=== PATIENT | male | born 1940 | race Caucasian/White ===

== ENCOUNTER 2016-10-06 09:38 | Outpatient (RCR) | payer MEDICAID, MEDICARE, OTHER ==
--- OUTSIDE RECORDS SUMMARY | 2016-07-10 10:10 | XMS REPORT | Continuity of Care Document ---
Author Author [facility] Organization [facility] Address Unknown Phone Unavailable Care Team Providers Care Aerophysics Engineer Name Role Phone Zoraida Lyle PCP [phone] Source Comments Some departments are not documenting in the electronic medical record. If you do not see the information that you expected, contact Release of Information in the Health Information Management department at [phone] for further assistance in locating additional records.[facility] Active Allergies and Adverse Reactions Not on File Current Medications Not on file Active Problems Not on file Social History Tobacco Use Types Packs/Day Years Used Date Never Assessed Plan of Care Health Maintenance Due Date Last Done Comments Physical (Comprehensive) 02/03/1947 Exam Pertussis Vaccine 02/03/1952 Tetanus Vaccine 1958 Colorectal Cancer 1991 Screening Shingles Vaccine 2001 Prevnar/Pneumovax (#1) 2006 Influenza Vaccine 05/21/2016 Results from Last 3 Months Not on file
[2016-07-10 10:51] LABS: BASOPHILS % (AUTO) 0 % (0-10); EOSINOPHILS # (AUTO) 0.1 10^3/uL (0.0-0.3); EOSINOPHILS % (AUTO) 1 % (0-10); LYMPHOCYTES # (AUTO) 0.8 X 10^3 (1.0-4.0); LYMPHOCYTES % (AUTO) 8 % (12-44); MEAN CORPUSCULAR HEMOGLOBIN 29 PG (25-34); MEAN CORPUSCULAR HGB CONC 33 G/DL (32-36); MEAN CORPUSCULAR VOLUME 86 FL (80-99); MONOCYTES # (AUTO) 0.8 X 10^3 (0.0-1.0); MONOCYTES % (AUTO) 8 % (0-12); NEUTROPHILS # (AUTO) 8.8 X 10^3 (1.8-7.8); NEUTROPHILS % (AUTO) 83 % (42-75); PLATELET COUNT 424 10^3/uL (130-400); RED BLOOD COUNT 3.51 10^6/uL (4.35-5.85); RED CELL DISTRIBUTION WIDTH 14.5 % (10.0-14.5); WHITE BLOOD COUNT 10.5 10^3/uL (4.3-11.0)
[2016-07-10 11:05] LABS: INR 1.8 (0.8-1.4); PROTHROMBIN TIME PATIENT 20.7 SEC (12.2-14.7)
[2016-07-10 11:15] LABS: ALANINE AMINOTRANSFERASE 65 U/L (0-55); ALBUMIN 3.1 G/DL (3.2-4.5); ANION GAP 9 MMOL/L (5-14); ASPARTATE AMINO TRANSFERASE 47 U/L (5-34); BILIRUBIN,TOTAL 0.7 MG/DL (0.1-1.0); BLOOD UREA NITROGEN 21 MG/DL (7-18); BUN/CREATININE RATIO 19; CARBON DIOXIDE 27 MMOL/L (21-32); CHLORIDE 99 MMOL/L (98-107); CREATININE SERUM 1.12 MG/DL (0.60-1.30); GFR ESTIMATED > 60; GLUCOSE 362 MG/DL (70-105); POTASSIUM 4.8 MMOL/L (3.6-5.0); SODIUM 135 MMOL/L (135-145); TOTAL PROTEIN 6.9 G/DL (6.4-8.2)
[2016-08-11 09:15] LABS: BASOPHILS % (AUTO) 0 % (0-10); EOSINOPHILS # (AUTO) 0.1 10^3/uL (0.0-0.3); EOSINOPHILS % (AUTO) 1 % (0-10); LYMPHOCYTES # (AUTO) 0.9 X 10^3 (1.0-4.0); LYMPHOCYTES % (AUTO) 7 % (12-44); MEAN CORPUSCULAR HEMOGLOBIN 29 PG (25-34); MEAN CORPUSCULAR HGB CONC 33 G/DL (32-36); MEAN CORPUSCULAR VOLUME 87 FL (80-99); MEAN PLATELET VOLUME 9.2 FL (7.4-10.4); MONOCYTES # (AUTO) 0.9 X 10^3 (0.0-1.0); MONOCYTES % (AUTO) 7 % (0-12); NEUTROPHILS # (AUTO) 11.2 X 10^3 (1.8-7.8); NEUTROPHILS % (AUTO) 86 % (42-75); PLATELET COUNT 397 10^3/uL (130-400); RED BLOOD COUNT 3.36 10^6/uL (4.35-5.85); RED CELL DISTRIBUTION WIDTH 14.3 % (10.0-14.5); WHITE BLOOD COUNT 13.1 10^3/uL (4.3-11.0)
[2016-08-11 10:18] LABS: ALANINE AMINOTRANSFERASE 105 U/L (0-55); ALBUMIN 3.3 G/DL (3.2-4.5); ANION GAP 7 MMOL/L (5-14); ASPARTATE AMINO TRANSFERASE 90 U/L (5-34); BILIRUBIN,TOTAL 0.6 MG/DL (0.1-1.0); BLOOD UREA NITROGEN 17 MG/DL (7-18); BUN/CREATININE RATIO 17; CALCIUM 9.6 MG/DL (8.5-10.1); CARBON DIOXIDE 28 MMOL/L (21-32); CHLORIDE 98 MMOL/L (98-107); CREATININE SERUM 0.99 MG/DL (0.60-1.30); GFR ESTIMATED > 60; GLUCOSE 255 MG/DL (70-105); MAGNESIUM 1.9 MG/DL (1.8-2.4); POTASSIUM 4.4 MMOL/L (3.6-5.0); SODIUM 133 MMOL/L (135-145); TOTAL PROTEIN 6.7 G/DL (6.4-8.2)
[2016-09-08 10:28] LABS: BASOPHILS % (AUTO) 0 % (0-10); EOSINOPHILS # (AUTO) 0.1 10^3/uL (0.0-0.3); EOSINOPHILS % (AUTO) 1 % (0-10); LYMPHOCYTES # (AUTO) 0.9 X 10^3 (1.0-4.0); LYMPHOCYTES % (AUTO) 7 % (12-44); MEAN CORPUSCULAR HEMOGLOBIN 28 PG (25-34); MEAN CORPUSCULAR HGB CONC 32 G/DL (32-36); MEAN CORPUSCULAR VOLUME 86 FL (80-99); MONOCYTES # (AUTO) 0.9 X 10^3 (0.0-1.0); MONOCYTES % (AUTO) 8 % (0-12); NEUTROPHILS % (AUTO) 84 % (42-75); PLATELET COUNT 426 10^3/uL (130-400); RED BLOOD COUNT 3.41 10^6/uL (4.35-5.85); RED CELL DISTRIBUTION WIDTH 14.1 % (10.0-14.5); WHITE BLOOD COUNT 11.9 10^3/uL (4.3-11.0)
[2016-09-08 11:37] LABS: ALANINE AMINOTRANSFERASE 143 U/L (0-55); ALBUMIN 3.3 G/DL (3.2-4.5); ANION GAP 9 MMOL/L (5-14); ASPARTATE AMINO TRANSFERASE 102 U/L (5-34); BILIRUBIN,TOTAL 0.8 MG/DL (0.1-1.0); BLOOD UREA NITROGEN 20 MG/DL (7-18); BUN/CREATININE RATIO 19; CALCIUM 9.7 MG/DL (8.5-10.1); CARBON DIOXIDE 27 MMOL/L (21-32); CHLORIDE 95 MMOL/L (98-107); CREATININE SERUM 1.06 MG/DL (0.60-1.30); GFR ESTIMATED > 60; GLUCOSE 322 MG/DL (70-105); MAGNESIUM 1.9 MG/DL (1.8-2.4); POTASSIUM 4.2 MMOL/L (3.6-5.0); SODIUM 131 MMOL/L (135-145); TOTAL PROTEIN 7.1 G/DL (6.4-8.2)
[~2016-10-06 09:38] MED LIST: AGM875T PO; ALBU0.632 IH; ALBU0.8322 IH; ALBU2.5V4 INH; ALBU8.5H2 INH; ALBUNEBRX IH; ALPR1T; ALPR1TAB2 PO; ALPR1TAB7 PO; AMOX500C2 PO; ASP81TEC; ASPI-266 PO; Aspirin PO; CEFD300C3 PO; CEFU500T34 PO; CEPH-38 PO; CEPH500C PO; CHOL400C8 PO; CLIN150C17 PO; CLOP75TA PO; CLOP75TA28 PO; CLPD75T PO; CPR500T PO; DIGO-10 PO; DIGO250T PO; DIGO250T15 PO; DOXY100T2 PO; ENAL5TAB PO; FINA5TAB6; FLUC200T45 PO; FLUT1DIS26 INH; FURO20TA4 PO; GABA-488 PO; GLIM4TAB PO; HYDR-2890 PO; HYDR1TAB85; HYDR1TAB86 PO; INSU100I14; INSU200I4; IPRA3AMP11 INH; LEVE500T PO; LEVO500T2 PO; LEVO500T69 PO; MED FOR DIABETES; METH4TAB PO; METO-272 PO; METO100T5; MTP25TSR; MTP50T PO; NITR0.4T SL; OXYC-143 PO; OXYC-272 PO; OXYC-464 PO; OXYC15TA73 PO; OXYC20TA63 PO; OXYC30TA76 PO; OXYC30TA77 PO; OXYC40TA49 PO; POTA10TA10 PO; PRD20T PO; PRED10TA PO; PROC5TAB PO; RT-ALBUINH IH; SULF-222 PO; SULF1TAB7 PO; TAMS0.4C2 PO; WARF-48 PO; WARF5TAB PO; WARF5TAB6 PO; WARF7.5T; WRF10T PO; WRF5T PO
[2016-10-06 10:17] LABS: BASOPHILS # (AUTO) 0.1 10^3/uL (0.0-0.1); BASOPHILS % (AUTO) 0 % (0-10); EOSINOPHILS % (AUTO) 0 % (0-10); LYMPHOCYTES # (AUTO) 0.7 X 10^3 (1.0-4.0); LYMPHOCYTES % (AUTO) 3 % (12-44); MEAN CORPUSCULAR HEMOGLOBIN 29 PG (25-34); MEAN CORPUSCULAR HGB CONC 34 G/DL (32-36); MEAN CORPUSCULAR VOLUME 86 FL (80-99); MEAN PLATELET VOLUME 9.7 FL (7.4-10.4); MONOCYTES # (AUTO) 0.8 X 10^3 (0.0-1.0); MONOCYTES % (AUTO) 3 % (0-12); NEUTROPHILS # (AUTO) 24.6 X 10^3 (1.8-7.8); NEUTROPHILS % (AUTO) 94 % (42-75); PLATELET COUNT 366 10^3/uL (130-400); RED BLOOD COUNT 3.65 10^6/uL (4.35-5.85); WHITE BLOOD COUNT 26.1 10^3/uL (4.3-11.0)
[2016-10-06 10:43] LABS: ALANINE AMINOTRANSFERASE 130 U/L (0-55); ALBUMIN 3.3 G/DL (3.2-4.5); ANION GAP 9 MMOL/L (5-14); ASPARTATE AMINO TRANSFERASE 55 U/L (5-34); BILIRUBIN,TOTAL 0.4 MG/DL (0.1-1.0); BLOOD UREA NITROGEN 32 MG/DL (7-18); BUN/CREATININE RATIO 30; CALCIUM 8.6 MG/DL (8.5-10.1); CARBON DIOXIDE 26 MMOL/L (21-32); CHLORIDE 93 MMOL/L (98-107); CREATININE SERUM 1.07 MG/DL (0.60-1.30); GFR ESTIMATED > 60; POTASSIUM 4.8 MMOL/L (3.6-5.0); SODIUM 128 MMOL/L (135-145); TOTAL PROTEIN 6.1 G/DL (6.4-8.2)
[2016-10-06 10:51] LABS: GLUCOSE 440 MG/DL (70-105)
== END 2016-10-08 | disposition home or self-care (01) ==
LOC: ONC 09:38
PROVIDERS: ATTEND Internal Medicine Hematology & Oncology
DX: C34.11 Malignant neoplasm of upper lobe, right bronchus or lung (principal); D50.9 Iron deficiency anemia, unspecified; E11.9 Type 2 diabetes mellitus without complications; I50.9 Heart failure, unspecified; I25.10 Atherosclerotic heart disease of native coronary artery without angina pectoris; I10 Essential (primary) hypertension; J44.9 Chronic obstructive pulmonary disease, unspecified; Z86.73 Personal history of transient ischemic attack (TIA), and cerebral infarction without residual deficits; Z95.810 Presence of automatic (implantable) cardiac defibrillator; Z95.2 Presence of prosthetic heart valve; Z87.891 Personal history of nicotine dependence; Z79.899 Other long term (current) drug therapy; Z79.01 Long term (current) use of anticoagulants
CPT/HCPCS: 36591; 80053; 83735; 85025; 85610; 99213

== ENCOUNTER 2016-11-07 10:22 | Emergency (ER) | payer MEDICARE, MEDICAID ==
[~2016-11-07] VITALS: Ht 193 cm; Wt 83.6 kg
--- OUTSIDE RECORDS SUMMARY | 2016-11-07 10:29 | XMS REPORT | Continuity of Care Document ---
Author Author [facility] Organization [facility] Address Unknown Phone Unavailable Care Team Providers Care Felt Hat Flanging Operator Name Role Phone Zoraida Lyle PCP [phone] Source Comments Some departments are not documenting in the electronic medical record. If you do not see the information that you expected, contact Release of Information in the Health Information Management department at [phone] for further assistance in locating additional records.[facility] Active Allergies and Adverse Reactions Not [...]
[2016-11-07 11:54] LABS: BASOPHILS % (AUTO) 0 % (0-10); EOSINOPHILS % (AUTO) 0 % (0-10); LYMPHOCYTES # (AUTO) 0.5 X 10^3 (1.0-4.0); LYMPHOCYTES % (AUTO) 3 % (12-44); MEAN CORPUSCULAR HEMOGLOBIN 30 PG (25-34); MEAN CORPUSCULAR HGB CONC 35 G/DL (32-36); MEAN CORPUSCULAR VOLUME 86 FL (80-99); MEAN PLATELET VOLUME 9.9 FL (7.4-10.4); MONOCYTES # (AUTO) 0.7 X 10^3 (0.0-1.0); MONOCYTES % (AUTO) 4 % (0-12); NEUTROPHILS # (AUTO) 16.8 X 10^3 (1.8-7.8); NEUTROPHILS % (AUTO) 93 % (42-75); PLATELET COUNT 199 10^3/uL (130-400); RED BLOOD COUNT 3.75 10^6/uL (4.35-5.85); RED CELL DISTRIBUTION WIDTH 17.2 % (10.0-14.5); WHITE BLOOD COUNT 18.2 10^3/uL (4.3-11.0)
--- NOTE | 2016-11-07 12:11 | Diagnostic Imaging Report ---
INDICATION: Shortness of air. COMPARISON: 08/01/2016. FINDINGS: Right upper lobe confluent opacification is unchanged. Increased linear opacities at right lung base. No pleural effusion or pneumothorax. Stable cardiomediastinal silhouette with left pectoral transvenous pacemaker/ICD. IMPRESSION: 1. Increased right basilar predominant linear opacities likely atelectasis. However, if there are clinical signs of infection this could represent an infectious bronchiolitis. 2. Right upper lobe volume loss and confluent opacities are similar. Dictated by: Dictated on workstation # [id number]
[2016-11-07 12:13] LABS: ALBUMIN 3.4 G/DL (3.2-4.5); BILIRUBIN,TOTAL 0.6 MG/DL (0.1-1.0); CALCIUM 9.4 MG/DL (8.5-10.1); CREATININE SERUM 1.2 MG/DL (0.60-1.30); POTASSIUM 4.6 MMOL/L (3.6-5.0)
[2016-11-07] MEDS ORDERED: RT-IPRATROPIUM (ATROVENT) 0.5MG/2.5ML AMP IH ONE (12:15)
[2016-11-07] MEDS ORDERED: NS IV 1000 ML 1,000 ML IV ONE (12:19)
[2016-11-07] MEDS ORDERED: inSUlin (REGULAR) HUMAN 1 UNIT/0.01 ML (CHARGE PER UNIT) SC STA (12:19)
--- NOTE | 2016-11-07 12:19 | ED Cough/URI ---
General Chief Complaint: Cough/Cold/Flu Symptoms Stated Complaint: CHEST CONGESTION/COUGH Nursing Triage Note: PT C/O PRODUCTIVE COUGH X 4 DAYS. PT HAS BEEN TAKING Z PACK SINCE 11/04 FOR THESE S/S, BUT REPORTS NO IMPROVEMENT. History of Present Illness Time seen by provider: 11:30 Initial Comments Patient presents for cough and congestion. He started a Z-Eusebio on 11/04/16. Has a history of right upper lobe lung cancer. Taking Mucinex 1 day. He has bilateral reports to his chest. Tenderness along the right chest wall, anteriorly Timing/Duration: changing over time Severity/Quality: productive cough Prior Episodes/Possible Cause: frequent episodes Modifying Factors: Improves With Oxygen (he uses a nonrebreather with 8 L when necessary at home), Improves With Rest Associated Symptoms: denies symptoms Allergies and Home Medications Allergies Coded Allergies: No Known Drug Allergies (Verified , 08/01/16) Home Medications Albuterol Sulfate 0.83 Mg/Ml Solution 2.5 MG INH Q6H PRN PRN SHORTNESS OF BREATH (Reported) Albuterol Sulfate 8.5 Gm Hfa.aer.ad 2 PUFF IH Q6H PRN PRN SHORTNESS OF BREATH ( Reported) Alprazolam 1 Mg Tablet 1 MG PO TID PRN PRN ANXIETY (Reported) Aspirin 81 Mg Tablet.dr 81 MG PO DAILY (Reported) Cholecalciferol (Vitamin D3) 400 Unit Capsule 400 UNIT PO DAILY (Reported) Digoxin 250 Mcg Tablet 250 MCG PO DAILY (Reported) Enalapril Maleate 5 Mg Tablet 5 MG PO DAILY (Reported) Finasteride 5 Mg Tablet #30 (Reported) Furosemide 20 Mg Tablet 20 MG PO DAILY (Reported) Insulin Aspart 300 Units/3 Ml Solution #15 (Reported) Insulin Degludec 200 Unit/1 Ml Insuln.pen #9 (Reported) Levofloxacin 250 Mg Tablet #5 250 MG PO DAILY Prescribed by: MOIZ JUNG on 11/07/16 1414 Metoprolol Succinate 50 Mg Tab.er.24h 50 MG PO HS (Reported) Nitroglycerin 0.4 Mg Tab.subl 0.4 MG SL UD PRN PRN CHEST PAIN (Reported) Oxycodone HCl 30 Mg Tab.er.12h 30 MG PO Q12H (Reported) Oxycodone HCl/Acetaminophen 1 Each Tablet 1 TAB PO Q6H PRN PRN PAIN (Reported) Potassium Chloride 10 Meq Tablet.er #6 10 MEQ PO BID Prescribed by: KIANNA HOLLY on 08/01/16 182 Tamsulosin HCl 0.4 Mg Cap.er.24h 0.4 MG PO DAILY (Reported) Warfarin Sodium 5 Mg Tablet 2.5 MG PO MON & FRI (Reported) TAKES 1/2 (5MG) TABLET Warfarin Sodium 5 Mg Tablet 5 MG PO SUN,TUE,WED,THUR,SAT (Reported) Constitutional: no symptoms reported see HPI EENTM: no symptoms reported see HPINo nose congestion, No throat pain Respiratory: see HPI cough phlegm (brown to yellow in color) Cardiovascular: no symptoms reported see HPI Gastrointestinal: see HPI loss of appetite Genitourinary: no symptoms reported see HPI Musculoskeletal: no symptoms reported see HPI Skin: no symptoms reported see HPI Psychiatric/Neurological: No Symptoms Reported See HPI Hematologic/Lymphatic: No Symptoms Reported See HPI Immunological/Allergic: no symptoms reported see HPI All Other Systems Reviewed Negative Unless Noted: Yes Past Mnpbcgx-Wusncj-Hxcfpx Hx Patient Social History Alcohol Use: Denies Use Recreational Drug Use: No Smoking Status: Former Smoker Former Smoker/When Quit: Sep 20, 1984 Recent Foreign Travel: No Contact w/Someone Who Travel: No Recent Infectious Disease Expo: No Recent Hopitalizations: Yes Immunizations Up To Date Tetanus Booster (TDap): Unknown PED Vaccines UTD: No Date of Pneumonia Vaccine: Jul 10, 2014 Date of Influenza Vaccine: May 21, 2015 Seasonal Allergies Seasonal Allergies: No Surgeries HX Surgeries: Yes (HERNIA REP, PORT RIGHT CHEST, DEFIB/PACEMAKER X2;STENT LEFT LEG) Surgeries: Abdominal, Appendectomy, Defibrillator, Pacemaker, Valve Replacement , Vascular Surgery Respiratory Hx Respiratory Disorders: Yes (LUNG CANCER) Respiratory Disorders: COPD Cardiovascular Hx Cardiac Disorders: Yes (MECHANICAL VALVE/ DEFIB/PACEMAKER; KS X 2;CHF; CHRONIC CHEST PAIN/RIB PAIN) Cardiac Disorders: Atrial Fibrillation, Coronary Artery Disease, Heart Attack, Hypertension, Irregular Heartbeat, Peripheral Vascular, Valvular Heart Disease Neurological Hx Neurological Disorders: Yes (SEIZURES) Neurological Disorders: Stroke Reproductive System Hx Reproductive Disorders: No Sexually Transmitted Disease: No HIV/AIDS: No Genitourinary Hx Genitourinary Disorders: Yes Genitourinary Disorders: Prostate Problems, Renal Failure Gastrointestinal Hx Gastrointestinal Disorders: Yes Gastrointestinal Disorders: Chronic Constipation Musculoskeletal Hx Musculoskeletal Disorders: Yes (DISK HERNIATED;CHRONIC NECK PAIN, CHRONIC RT SIDE PAIN) Musculoskeletal Disorders: Degenerate Disk Disease, Chronic Back Pain Endocrine Hx Endocrine Disorders: Yes Endocrine Disorders: Diabetes, Non-Insulin dep HEENT HX ENT Disorders: Yes HEENT Disorders: Cataract Loss of Vision: Denies Hearing Impairment: Denies Cancer Hx Cancer: Yes (METS TO LYMPH NODES, CHEST WALL/BONE) Cancer: Lung Psychosocial Hx Psychiatric Problems: Yes Behavioral Health Disorders: Depression Integumentary HX Skin/Integumentary Disorder: Yes (chronic wound on left 3rd toe) Blood Transfusions Hx Blood Disorders: Yes (ANEMIA) Adverse Reaction to a Blood Tr: No Reviewed Nursing Assessment Reviewed/Agree w Nursing PMH: Yes Family Medical History Significant Family History: No Pertinent Family Hx Family Medial History: Cardiovascular disease 19 FATHER G8 BROTHER G8 BROTHER G8 BROTHER G8 BROTHER G8 BROTHER G8 BROTHER G8 BROTHER G8 BROTHER G8 BROTHER G8 BROTHER G8 BROTHER G8 BROTHER G8 BROTHER G8 BROTHER Diabetes mellitus G8 SISTER G8 SISTER G8 SISTER Neoplasm 19 FATHER (LUNG CANCER) 19 MOTHER (UTERINE CANCER) G8 BROTHER (LUNG CANCER) G8 BROTHER (LUNG CANCER) G8 BROTHER (LUNG CANCER) G8 BROTHER (LUNG CANCER) G8 BROTHER (LUNG CANCER) G8 BROTHER (LUNG CANCER) G8 BROTHER (LUNG CANCER) G8 BROTHER (LUNG CANCER) G8 BROTHER (LUNG CANCER) G8 BROTHER (LUNG CANCER) G8 BROTHER (LUNG CANCER) G8 BROTHER (LUNG CANCER) G8 BROTHER (LUNG CANCER) G8 BROTHER (LUNG CANCER) G8 SISTER (UTERINE CANCER) G8 SISTER (UTERINE CANCER) G8 SISTER (UTERINE CANCER) No Family History of: AIDS Abdominal aortic aneurysm Tristin's disease Alcoholism Alzheimer's disease Aphasia Arthritis Asthma Cancer of mouth Cataracts Colon cancer Completed stroke Congenital disease Congenital heart disease Coronary thrombosis Cystic fibrosis Deafness or hearing loss Dementia Drug abuse Dysphasia Fibrocystic disease of breast Gastroenteritis Glaucoma Headache disorder Hypercholesterolemia Hypertension Infertility Kidney disease Myocardial infarction Not obtainable due to adoption Osteoporosis Parkinson's disease Prostate cancer Psychosocial problem Respiratory disorder Seizure disorder Severe allergy Thyroid disease Visual disorder Physical Exam Vital Signs Vital Sign - Last 12Hours Capillary Refill : Less Than 3 Seconds General Appearance: WD/WN no apparent distress Eyes: Bilateral Eye EOMI, Bilateral Eye Normal Inspection, Bilateral Eye PERRL HEENT: PERRL/EOMI normal ENT inspection TMs normal pharynx normal Neck: non-tender full range of motion normal inspection Respiratory: no respiratory distress rhonchi (throughout bilaterally)No wheezing Cardiovascular: normal peripheral pulses regular rate, rhythm no murmur other (edema right lower extremity with negative Homans) Gastrointestinal: normal bowel sounds non tender soft Extremities: normal range of motion non-tender normal inspection no pedal edema no calf tenderness normal capillary refill Neurologic/Psychiatric: no motor/sensory deficits alert normal mood/affect oriented x 3 Skin: normal color warm/dry Lymphatic: no adenopathy Progress/Results/Core Measures Results/Orders Lab Results Laboratory Tests Test 11/07/16 10:40 11/07/16 11:45 11/07/16 13:21 Range/Units Urine Bacteria NEGATIVE /HPF Urine Bilirubin NEGATIVE NEGATIVE Urine Casts NONE /LPF Urine Clarity CLEAR Urine Color YELLOW Urine Crystals NONE /LPF Urine Culture Indicated NO Urine Glucose (UA) 4+ H NEGATIVE Urine Ketones NEGATIVE NEGATIVE Urine Leukocyte Esterase NEGATIVE NEGATIVE Urine Mucus NEGATIVE /LPF Urine Nitrite NEGATIVE NEGATIVE Urine Protein 1+ H NEGATIVE Urine RBC NONE /HPF Urine RBC (Auto) NEGATIVE NEGATIVE Urine Specific [place] 1.010 L 1.016-1.022 Urine Squamous Epithelial Cells NONE /HPF Urine Urobilinogen NORMAL NORMAL MG/DL Urine WBC NONE /HPF Urine pH 5 5-9 Alanine Aminotransferase (ALT/SGPT) 125 H 0-55 U/L Albumin 3.4 3.2-4.5 G/DL Alkaline Phosphatase 428 H 40-136 U/L Anion Gap 10 5-14 MMOL/L Anisocytosis SLIGHT Aspartate Amino Transf (AST/SGOT) 26 5-34 U/L BUN/Creatinine Ratio 23 Band Neutrophils 3 % Basophils # (Auto) 0.0 0.0-0.1 10^3/uL Basophils % (Manual) 0 % Basophils (%) (Auto) 0 0-10 % Blood Urea Nitrogen 28 H 7-18 MG/DL Calcium Level 9.4 8.5-10.1 MG/DL Carbon Dioxide Level 28 21-32 MMOL/L Chloride Level 91 L 98-107 MMOL/L Creatinine 1.20 0.60-1.30 MG/DL Eosinophils # (Auto) 0.0 0.0-0.3 10^3/uL Eosinophils % (Manual) 0 % Eosinophils (%) (Auto) 0 0-10 % Estimat Glomerular Filtration Rate 59 Glucose Level 532 *H 70-105 MG/DL Hematocrit 32 L 40-54 % Hemoglobin 11.1 L 13.3-17.7 G/DL Lymphocytes # (Auto) 0.5 L 1.0-4.0 X 10^3 Lymphocytes % (Manual) 3 % Lymphocytes (%) (Auto) 3 L 12-44 % Mean Corpuscular Hemoglobin 30 25-34 PG Mean Corpuscular Hemoglobin Concent 35 32-36 G/DL Mean Corpuscular Volume 86 80-99 FL Mean Platelet Volume 9.9 7.4-10.4 FL Metamyelocytes % 3 % Monocytes # (Auto) 0.7 0.0-1.0 X 10^3 Monocytes % (Manual) 4 % Monocytes (%) (Auto) 4 0-12 % Neutrophils # (Auto) 16.8 H 1.8-7.8 X 10^3 Neutrophils % (Manual) 81 % Neutrophils (%) (Auto) 93 H 42-75 % Platelet Count 199 130-400 10^3/uL Potassium Level 4.6 3.6-5.0 MMOL/L Reactive Lymphocytes 6 % Red Blood Count 3.75 L 4.35-5.85 10^6/uL Red Cell Distribution Width 17.2 H 10.0-14.5 % Sodium Level 129 L 135-145 MMOL/L Total Bilirubin 0.6 0.1-1.0 MG/DL Total Protein 6.0 L 6.4-8.2 G/DL White Blood Count 18.2 H 4.3-11.0 10^3/uL Glucometer 429 *H 70-110 MG/DL My Orders Orders-MOIZ JUNG PERSONNEL RECORDS CLERK Ipratropium 0.02% Neb Solution (Atrovent (11/07/16 12:15) Rt Request For Service (11/07/16 12:08) Svn Sm Volume Nebulizer Rt-Rfs (11/07/16 12:08) Insulin (Regular) Human (Humulin R (Per (11/07/16 12:19) Ns Iv 1000 Ml (Sodium Chloride 0.9%) (11/07/16 12:19) Ua Culture If Indicated (11/07/16 12:20) Diet Order UD (11/07/16 13:05) Diet As Tolerated (11/07/16 13:05) Accucheck Stat ONCE (11/07/16 13:07) General/Regular (11/07/16 Lunch) Hydrocodone/Apap 10/325 Tablet (Lortab 1 (11/07/16 13:45) Levofloxacin Tablet (Levaquin Tablet) (11/07/16 13:56) Medications Given in ED Current Medications Medications Dose Ordered Sig/Roshan Route Start Time Stop Time Status Last Admin Dose Admin Ipratropium [place] 0.5 mg 0.5 mg ONCE ONCE IH 11/07/16 12:15 11/07/16 12:16 DC 11/07/16 12:18 0.5 MG Sodium Chloride 1,000 ml @ 175 mls/hr Q5H43M ONCE IV 11/07/16 12:19 11/07/16 15:02 DC 11/07/16 12:46 175 MLS/HR Vital Signs/I&O Vital Sign - Last 12Hours 11/07/16 11/07/16 11/07/16 10:40 10:40 14:59 Temp 98.5 Pulse 70 73 Resp 18 14 B/P 144/58 Pulse Ox 96 96 O2 Delivery Room Air Room Air Blood Pressure Mean: 86 Progress Note : Time: 11:30 Progress Note Initial evaluation was completed, recommended lab workup with CBC, CMP and UA. Rest x-ray and breathing treatment. Patient declines albuterol states that it makes him lightheaded, agreed to try and Atrovent treatment. He used his Ventolin inhaler approximately 3-4 hours ago. His blood sugars have been running in the 400-600s, he has been adjusting his insulin and they have been slowly tapering down his Decadron doses. 1145 WBC 18.2; Glucose 532; Na 129; Alk Phos 428 and UA Neg. CXR showed changes in Right lung. Reg Insulin 10 Units and IV NS 175/hr. Fluid restriction for Na. 1245 slight improvement since breathing treatment. Discussed with patient the option of admission for further treatment for discharge to home. 1325 AccuCheck 429, a short reports being hungry, diet ordered. 1350 patient eating a small lunch. Reports he would like to return home. He will use his inhaler every 4 hours, continue adjusting his insulin related to his blood sugars. Follow up with Dr. Fleming early this week. Levaquin 500 mg po here, Rx to continue with 250 mg po for 4 days. Diagnostic Imaging Diagonstic Imaging: Xray Plain Films/CT/US/NM/MRI: chest Comments NAME: MARILYN CARTAGENA [facility] REC#: [id number] PT STATUS: REG ER : 1940 PHYSICIAN: DELMY HOWELL MD ADMIT DATE: 11/07/16/ER Draft Date of Exam:11/07/16 CHEST 1 VIEW, AP/PA ONLY INDICATION: Shortness of air. COMPARISON: 08/01/2016. FINDINGS: Right upper lobe confluent opacification is unchanged. Increased linear opacities at right lung base. No pleural effusion or pneumothorax. Stable cardiomediastinal silhouette with left pectoral transvenous pacemaker/ICD. IMPRESSION: 1. Increased right basilar predominant linear opacities likely atelectasis. However, if there are clinical signs of infection this could represent an infectious bronchiolitis. 2. Right upper lobe volume loss and confluent opacities are similar. Dictated on workstation # [id number] Dict: 11/07/16 1158 Trans: 11/07/16 1210 [id number] Interpreted by: ARIAS GUNN MD Electronically signed by: Reviewed: Reviewed by Me, Reviewed/Discussed Departure Impression Impression: Primary Impression: Community acquired pneumonia Additional Impression: COPD (chronic obstructive pulmonary disease) Qualified Code: J44.0 - Chronic obstructive pulmonary disease with acute lower respiratory infection Disposition: 01 HOME, SELF-CARE Condition: Stable Departure-Patient Inst. Decision time for Depature: 13:50 Referrals: BILL FLEMING DO (PCP/Family) Primary Care Physician Patient Instructions: Pneumonia, Adult (DC) Add. Discharge Instructions: All discharge instructions reviewed with patient and/or family. Voiced understanding. Initial last 2 days of Z-Eusebio. Take Levaquin starting tomorrow. Follow-up with Dr. Fleming in 2-3 days. Return to emergency room for increased difficulty breathing, fevers, or new concerns. Use Ventolin inhaler 2 puffs every 4 hours as needed. Continue taking Mucinex. Scripts Levofloxacin (Levaquin)250 Mg [id number] Mg PO DAILY #5 TAB Ref 0 Prov:MOIZ JUNG 11/07/16 Copy Copies To 1: BILL FLEMING AMY ARNP Nov 07, 2016 12:18
[2016-11-07 12:23] LABS: ANISOCYTOSIS SLIGHT; BAND NEUTROPHILS 3 %; BASOPHILS % (MANUAL) 0 %; EOSINOPHILS % (MANUAL) 0 %; LYMPHOCYTES % (MANUAL) 3 %; METAMYELOCYTES % 3 %; NEUTROPHILS % (MANUAL) 81 %; REACTIVE LYMPHOCYTES 6 %
[2016-11-07 12:26] LABS: BILIRUBIN,URINE NEGATIVE (NEGATIVE); KETONES,URINE NEGATIVE (NEGATIVE); LEUKOCYTE ESTERASE ,URINE NEGATIVE (NEGATIVE); NITRITE,URINE NEGATIVE (NEGATIVE); PH,URINE 5 (5-9); PROTEIN,URINE 1+ (NEGATIVE); UROBILINOGEN,URINE NORMAL (NORMAL)
[2016-11-07] MEDS ORDERED: HYDROcodone/APAP 10 MG/325 MG (LORTAB) TAB PO STA (13:45)
[2016-11-07] MEDS ORDERED: LEVOFLOXACIN 500 MG TAB (LEVAQUIN) PO STA (13:56)
[2016-11-07] MEDS ORDERED: LEVO250T11 PO (14:14)
[2016-11-07 14:59] VITALS: BP 138/60
== END 2016-11-07 15:01 | disposition home or self-care (01) ==
LOC: EDUNIT# 10:22 → ER 10:24
DX: J18.9 Pneumonia, unspecified organism (principal); J44.9 Chronic obstructive pulmonary disease, unspecified; I10 Essential (primary) hypertension; E11.9 Type 2 diabetes mellitus without complications; I48.2 Chronic atrial fibrillation; Z79.4 Long term (current) use of insulin; Z79.82 Long term (current) use of aspirin; Z79.01 Long term (current) use of anticoagulants; Z79.899 Other long term (current) drug therapy; Z95.5 Presence of coronary angioplasty implant and graft; Z95.0 Presence of cardiac pacemaker; Z95.2 Presence of prosthetic heart valve; Z85.118 Personal history of other malignant neoplasm of bronchus and lung
CPT/HCPCS: 36415; 71010; 80053; 81000; 82962; 85007; 85027; 94640; 96372; 99283

== ENCOUNTER 2016-11-14 16:15 | Emergency (ER) | payer MEDICARE, MEDICAID ==
[~2016-11-14] VITALS: Ht 188 cm; Wt 83.0 kg
[~2016-11-14 16:15] MED LIST changes: +LEVO250T11 PO
--- OUTSIDE RECORDS SUMMARY | 2016-11-14 16:20 | XMS REPORT | Continuity of Care Document ---
Author Author [facility] Organization [facility] Address Unknown Phone Unavailable Care Team Providers Care Order Dispatcher Chief Name Role Phone Zoraida Lyle PCP [phone] Source Comments Some departments are not documenting in the electronic medical record. If you do not see the information that you expected, contact Release of Information in the Health Information Management department at [phone] for further assistance in locating additional records.[facility] Active Allergies and Adverse Reactions Not [...]
--- NOTE | 2016-11-14 16:41 | ED GI ---
General Chief Complaint: Abdominal/GI Problems Stated Complaint: ABD PAIN Nursing Triage Note: PT REPORTS GENERALIZED ABDOMINAL PAIN AND NO BM FOR 6-7 DAYS. Sepsis Screen: No Definite Risk Source of Information: Patient Exam Limitations: No Limitations History of Present Illness Time Seen By Provider: 16:40 Initial Comments To ER accompanied by family with reports of his abdominal pain and no bowel movement for 6-7 days. He's been using glycerin suppositories, MiraLAX, Dulcolax and an entire bottle of magnesium citrate last night with no bowel movement. He states that he is passing gas, albeit a very small amount. No vomiting. History of lung cancer. Timing/Duration: 1-2 Days Severity/Quality: Moderate Location: Generalized Abdomen Activities at Onset: None Associated Symptoms: Nausea/Vomiting Allergies and Home Medications Allergies Coded Allergies: No Known Drug Allergies (Verified , 08/01/16) Home Medications Albuterol Sulfate 0.83 Mg/Ml Solution 2.5 MG INH Q6H PRN PRN SHORTNESS OF BREATH (Reported) Albuterol Sulfate 8.5 Gm Hfa.aer.ad 2 PUFF IH Q6H PRN PRN SHORTNESS OF BREATH ( Reported) Alprazolam 1 Mg Tablet 1 MG PO TID PRN PRN ANXIETY (Reported) Aspirin 81 Mg Tablet.dr 81 MG PO DAILY (Reported) Cholecalciferol (Vitamin D3) 400 Unit Capsule 400 UNIT PO DAILY (Reported) Digoxin 250 Mcg Tablet 250 MCG PO DAILY (Reported) Enalapril Maleate 5 Mg Tablet 5 MG PO DAILY (Reported) Finasteride 5 Mg Tablet #30 (Reported) Furosemide 20 Mg Tablet 20 MG PO DAILY (Reported) Insulin Aspart 300 Units/3 Ml Solution #15 (Reported) Insulin Degludec 200 Unit/1 Ml Insuln.pen #9 (Reported) Levofloxacin 250 Mg Tablet #5 250 MG PO DAILY Prescribed by: MOIZ JUNG on 11/07/16 1414 Metoprolol Succinate 50 Mg Tab.er.24h 50 MG PO HS (Reported) Nitroglycerin 0.4 Mg Tab.subl 0.4 MG SL UD PRN PRN CHEST PAIN (Reported) Oxycodone HCl 30 Mg Tab.er.12h 30 MG PO Q12H (Reported) Oxycodone HCl/Acetaminophen 1 Each Tablet 1 TAB PO Q6H PRN PRN PAIN (Reported) Potassium Chloride 10 Meq Tablet.er #6 10 MEQ PO BID Prescribed by: KIANNA HOLLY on 08/01/16 1824 Tamsulosin HCl 0.4 Mg Cap.er.24h 0.4 MG PO DAILY (Reported) Warfarin Sodium 5 Mg Tablet 2.5 MG PO MON & FRI (Reported) TAKES 1/2 (5MG) TABLET Warfarin Sodium 5 Mg Tablet 5 MG PO SUN,TUE,WED,THUR,SAT (Reported) Review of Systems Constitutional: see HPI EENTM: No Symptoms Reported Respiratory: No Symptoms Reported Cardiovascular: No Symptoms Reported Gastrointestinal: See HPI Abdominal Pain ConstipatedDenies Diarrhea, Denies Nausea Genitourinary: No Symptoms Reported Musculoskeletal: no symptoms reported Skin: no symptoms reported Psychiatric/Neurological: No Symptoms Reported Endocrine: No Symptoms Reported Past Miiozzg-Ffeopz-Jpxcul Hx Patient Social History Alcohol Use: Denies Use Recreational Drug Use: No Smoking Status: Former Smoker Type Used: Cigarettes Former Smoker/When Quit: Sep 20, 1984 Recent Foreign Travel: No Contact w/Someone Who Travel: No Recent Infectious Disease Expo: No Recent Hopitalizations: Yes Immunizations Up To Date Tetanus Booster (TDap): Unknown PED Vaccines UTD: No Date of Pneumonia Vaccine: Jul 10, 2014 Date of Influenza Vaccine: May 21, 2015 Seasonal Allergies Seasonal Allergies: No Surgeries HX Surgeries: Yes (HERNIA REP, PORT RIGHT CHEST, DEFIB/PACEMAKER X2;STENT LEFT LEG) Surgeries: Abdominal, Appendectomy, Defibrillator, Pacemaker, Valve Replacement , Vascular Surgery Respiratory Hx Respiratory Disorders: Yes (LUNG CANCER) Respiratory Disorders: COPD Cardiovascular Hx Cardiac Disorders: Yes (MECHANICAL VALVE/ DEFIB/PACEMAKER; [place] X 2;CHF; CHRONIC CHEST PAIN/RIB PAIN) Cardiac Disorders: Atrial Fibrillation, Coronary Artery Disease, Heart Attack, Hypertension, Irregular Heartbeat, Peripheral Vascular, Valvular Heart Disease Neurological Hx Neurological Disorders: Yes (SEIZURES) Neurological Disorders: Stroke Reproductive System Hx Reproductive Disorders: No Sexually Transmitted Disease: No HIV/AIDS: No Genitourinary Hx Genitourinary Disorders: Yes Genitourinary Disorders: Prostate Problems, Renal Failure Gastrointestinal Hx Gastrointestinal Disorders: Yes Gastrointestinal Disorders: Chronic Constipation Musculoskeletal Hx Musculoskeletal Disorders: Yes (DISK HERNIATED;CHRONIC NECK PAIN, CHRONIC RT SIDE PAIN) Musculoskeletal Disorders: Degenerate Disk Disease, Chronic Back Pain Endocrine Hx Endocrine Disorders: Yes Endocrine Disorders: Diabetes, Non-Insulin dep HEENT HX ENT Disorders: Yes HEENT Disorders: Cataract Loss of Vision: Denies Hearing Impairment: Denies Cancer Hx Cancer: Yes (METS TO LYMPH NODES, CHEST WALL/BONE) Cancer: Lung Psychosocial Hx Psychiatric Problems: Yes Behavioral Health Disorders: Depression Integumentary HX Skin/Integumentary Disorder: Yes (chronic wound on left 3rd toe) Blood Transfusions Hx Blood Disorders: Yes (ANEMIA) Adverse Reaction to a Blood Tr: No Family Medical History Significant Family History: No Pertinent Family Hx Family Medial History: Cardiovascular disease 19 FATHER G8 BROTHER G8 BROTHER G8 BROTHER G8 BROTHER G8 BROTHER G8 BROTHER G8 BROTHER G8 BROTHER G8 BROTHER G8 BROTHER G8 BROTHER G8 BROTHER G8 BROTHER G8 BROTHER Diabetes mellitus G8 SISTER G8 SISTER G8 SISTER Neoplasm 19 FATHER (LUNG CANCER) 19 MOTHER (UTERINE CANCER) G8 BROTHER (LUNG CANCER) G8 BROTHER (LUNG CANCER) G8 BROTHER (LUNG CANCER) G8 BROTHER (LUNG CANCER) G8 BROTHER (LUNG CANCER) G8 BROTHER (LUNG CANCER) G8 BROTHER (LUNG CANCER) G8 BROTHER (LUNG CANCER) G8 BROTHER (LUNG CANCER) G8 BROTHER (LUNG CANCER) G8 BROTHER (LUNG CANCER) G8 BROTHER (LUNG CANCER) G8 BROTHER (LUNG CANCER) G8 BROTHER (LUNG CANCER) G8 SISTER (UTERINE CANCER) G8 SISTER (UTERINE CANCER) G8 SISTER (UTERINE CANCER) No Family History of: AIDS Abdominal aortic aneurysm Paulding's disease Alcoholism Alzheimer's disease Aphasia Arthritis Asthma Cancer of mouth Cataracts Colon cancer Completed stroke Congenital disease Congenital heart disease Coronary thrombosis Cystic fibrosis Deafness or hearing loss Dementia Drug abuse Dysphasia Fibrocystic disease of breast Gastroenteritis Glaucoma Headache disorder Hypercholesterolemia Hypertension Infertility Kidney disease Myocardial infarction Not obtainable due to adoption Osteoporosis Parkinson's disease Prostate cancer Psychosocial problem Respiratory disorder Seizure disorder Severe allergy Thyroid disease Visual disorder Physical Exam Vital Signs VS - Last 72 Hours, by Label 11/14/16 16:26 Temp 98.1 Pulse 80 Resp 18 B/P 151/73 Pulse Ox 93 O2 Delivery Room Air Capillary Refill : Less Than 3 Seconds General Appearance: WD/WN no apparent distress HEENT: PERRL/EOMI normal ENT inspection Respiratory: no respiratory distress no accessory muscle use Gastrointestinal: normal bowel sounds (he does have bowel sounds) non tender soft Extremities: normal range of motion non-tender Neurologic/Psychiatric: alert normal mood/affect oriented x 3 Skin: normal color warm/dry Progress/Results/Core Measures Results/Orders Lab Results Laboratory Tests Test 11/14/16 16:44 11/14/16 17:29 11/14/16 18:32 Range/Units Alanine Aminotransferase (ALT/SGPT) 72 H 0-55 U/L Albumin 2.9 L 3.2-4.5 G/DL Alkaline Phosphatase 430 H 40-136 U/L Anion Gap 10 5-14 MMOL/L Aspartate Amino Transf (AST/SGOT) 51 H 5-34 U/L BUN/Creatinine Ratio 24 Band Neutrophils 10 % Basophils # (Auto) 0.1 0.0-0.1 10^3/uL Basophils % (Manual) 0 % Basophils (%) (Auto) 0 0-10 % Blood Morphology Comment NORMAL Blood Urea Nitrogen 28 H 7-18 MG/DL Calcium Level 8.8 8.5-10.1 MG/DL Carbon Dioxide Level 27 21-32 MMOL/L Chloride Level 89 L 98-107 MMOL/L Creatinine 1.19 0.60-1.30 MG/DL Eosinophils # (Auto) 0.0 0.0-0.3 10^3/uL Eosinophils % (Manual) 0 % Eosinophils (%) (Auto) 0 0-10 % Estimat Glomerular Filtration Rate 60 Glucose Level 417 *H 70-105 MG/DL Hematocrit 31 L 40-54 % Hemoglobin 10.5 L 13.3-17.7 G/DL INR Comment 2.7 H 0.8-1.4 Lipase 12 8-78 U/L Lymphocytes # (Auto) 0.5 L 1.0-4.0 X 10^3 Lymphocytes % (Manual) 6 % Lymphocytes (%) (Auto) 3 L 12-44 % Mean Corpuscular Hemoglobin 29 25-34 PG Mean Corpuscular Hemoglobin Concent 34 32-36 G/DL Mean Corpuscular Volume 86 80-99 FL Mean Platelet Volume 9.2 7.4-10.4 FL Metamyelocytes % 1 % Monocytes # (Auto) 0.6 0.0-1.0 X 10^3 Monocytes % (Manual) 4 % Monocytes (%) (Auto) 4 0-12 % Neutrophils # (Auto) 14.6 H 1.8-7.8 X 10^3 Neutrophils % (Manual) 79 % Neutrophils (%) (Auto) 93 H 42-75 % Platelet Count 363 130-400 10^3/uL Potassium Level 5.4 H 3.6-5.0 MMOL/L Prothrombin Time 28.2 H 12.2-14.7 SEC Red Blood Count 3.62 L 4.35-5.85 10^6/uL Red Cell Distribution Width 17.0 H 10.0-14.5 % Sodium Level 126 L 135-145 MMOL/L Total Bilirubin 0.7 0.1-1.0 MG/DL Total Protein 6.1 L 6.4-8.2 G/DL White Blood Count 15.8 H 4.3-11.0 10^3/uL Urine Bacteria NONE /HPF Urine Bilirubin NEGATIVE NEGATIVE Urine Casts NONE /LPF Urine Clarity SLIGHTLY CLOUDY Urine Color YELLOW Urine Crystals NONE /LPF Urine Culture Indicated NO Urine Glucose (UA) 4+ H NEGATIVE Urine Ketones NEGATIVE NEGATIVE Urine Leukocyte Esterase NEGATIVE NEGATIVE Urine Mucus NEGATIVE /LPF Urine Nitrite NEGATIVE NEGATIVE Urine Protein NEGATIVE NEGATIVE Urine RBC RARE /HPF Urine RBC (Auto) NEGATIVE NEGATIVE Urine Specific [place] 1.010 L 1.016-1.022 Urine Urobilinogen NORMAL NORMAL MG/DL Urine WBC NONE /HPF Urine pH 7 5-9 Glucometer 289 H 70-110 MG/DL My Orders Orders-CASTILLO PAREKH APRN Cbc With Automated Diff (11/14/16 16:37) Comprehensive Metabolic Panel (11/14/16 16:37) Ua Culture If Indicated (11/14/16 16:37) Lipase (11/14/16 16:37) Saline Lock/Iv-Start (11/14/16 16:37) Ns Iv 500 Ml (Sodium Chloride 0.9%) (11/14/16 16:45) Fentanyl Injection (Sublimaze Injection (11/14/16 16:45) Chest Pa/Lat (2 View) (11/14/16 16:39) Ct Abdomen/Pelvis W (11/14/16 16:42) Manual Differential (11/14/16 16:44) Protime With Inr (11/14/16 16:57) Insulin (Regular) Human (Humulin R (Per (11/14/16 17:15) Iohexol Injection (Omnipaque 350 Mg/Ml 1 (11/14/16 18:00) Ns (Ivpb) (Sodium Chloride 0.9% Ivpb Bag (11/14/16 18:00) Diatrizoate Meglum/Sodium 37% (Gastrogra (11/14/16 18:00) Sodium Chloride Flush (Catheter Flush Sy (11/14/16 18:00) Sputum Culture (11/14/16 19:36) Medications Given in ED Current Medications Medications Dose Ordered Sig/Roshan Route Start Time Stop Time Status Last Admin Dose Admin Diatrizoate Meglum/ Diatrizoate Sod 120 ml ONCE ONCE PO 11/14/16 18:00 11/14/16 18:01 DC 11/14/16 18:13 10 ML Fentanyl Citrate 50 mcg ONCE ONCE IVP 11/14/16 16:45 11/14/16 16:46 DC 11/14/16 16:53 50 MCG Insulin Human Regular 8 unit ONCE ONCE IV 11/14/16 17:15 11/14/16 17:16 DC 11/14/16 17:26 8 UNIT Iohexol 100 ml ONCE ONCE IV 11/14/16 18:00 11/14/16 18:01 DC 11/14/16 18:13 100 ML Sodium Chloride 100 ml ONCE ONCE IV 11/14/16 18:00 11/14/16 18:01 DC 11/14/16 18:13 80 ML Vital Signs/I&O Vital Sign - Last 12Hours 11/14/16 16:26 Temp 98.1 Pulse 80 Resp 18 B/P 151/73 Pulse Ox 93 O2 Delivery Room Air Blood Pressure Mean: 99 Diagnostic Imaging Diagonstic Imaging: Xray, CT Plain Films/CT/US/NM/MRI: chest, abdomen, pelvis Comments NAME: MARILYN CARTAGENA [facility] REC#: [id number] PT STATUS: REG ER : 1940 PHYSICIAN: CASTILLO PAREKH APRN ADMIT DATE: 11/14/16/ER Draft Date of Exam:11/14/16 CHEST PA/LAT (2 VIEW) INDICATION: Chest pain. EXAMINATION: PA and lateral views of the chest were obtained at 5:59 p.m. COMPARISON: 11/07/16. FINDINGS: There is cardiomegaly and poststernotomy change with unchanged pacemaker device. There is unchanged mass effect in the right apex, medially. The remainder of the right lung is clear. The left lung is clear. IMPRESSION: No change in mass effect in right apical region. Poststernotomy changes with pacemaker are unchanged. No new infiltrate, pneumothorax or pleural fluid. Dictated on workstation # [id number] Dict: 11/14/16 1807 Trans: 11/14/16 1812 [facility] [id number] Interpreted by: JUAREZ MENA MD Electronically signed by: NAME: MARILYN CARTAGENA [facility] REC#: [id number] PT STATUS: REG ER : 1940 PHYSICIAN: CASTILLO PAREKH [employer] ADMIT DATE: 11/14/16/ER Draft Date of Exam:11/14/16 CT ABDOMEN/PELVIS W INDICATION: Abdominal pain, history of lung cancer and constipation CT of the abdomen and pelvis obtained with IV contrast bolus. Comparison made to 04/22/16. Visualized portions of the lung bases show some minimal infiltrate or atelectasis in the left base. There is no free air or pleural fluid. There are degenerative changes in both hips as well as in the SI joints. There is diffuse degenerative change of the lumbar spine without lytic lesion. The liver and gallbladder are unremarkable. The spleen, adrenals, and pancreas are unchanged compared to the prior study. There is a stable 2 cm nodule in the right adrenal gland which is unchanged, and is likely an adenoma since it was not positive on previous PET study. There is a stable small cyst in the right kidney superiorly and a stable moderate cyst in the right kidney inferiorly. There is no retroperitoneal mass or adenopathy. There is no ascites or abnormal fluid collection. There is a large amount of stool throughout the colon. There is no overt bowel obstruction. IMPRESSION: Large amount of stool throughout the colon compatible with history of constipation. No overt bowel obstruction. Stable cysts in the right kidney. Stable right adrenal nodule. Dictated on workstation # [id number] Dict: 11/14/16 1829 Trans: 11/14/16 1843 [facility] [id number] Interpreted by: JUAREZ MENA MD Electronically signed by: Departure Impression Impression: Primary Impression: Constipation Additional Impression: Fecal impaction Disposition: 01 HOME, SELF-CARE Condition: Stable Departure-Patient Inst. Decision time for Depature: 19:47 Referrals: BILL FLEMING DO (PCP/Family) Primary Care Physician Patient Instructions: Constipation, Adult (DC) Add. Discharge Instructions: 1. Return to ER for any concerns 2. Follow-up with your doctor next week 3. All discharge instructions reviewed with patient and/or family. Voiced understanding. Scripts Polyethylene Glycol 3350 (Miralax)17 Gm Powd.pack17 Gm PO BID #10 EACH Prov:CASTILLO PAREKH APRN 11/14/16 CASTILLO PAREKH APRN Nov 14, 2016 16:41
[2016-11-14] MEDS ORDERED: NS IV 500 ML 500 ML IV SCH (16:45)
[2016-11-14] MEDS ORDERED: fentaNYL INJECTION 100 MCG/2 ML AMP IVP ONE (16:45)
[2016-11-14 16:51] LABS: BASOPHILS # (AUTO) 0.1 10^3/uL (0.0-0.1); BASOPHILS % (AUTO) 0 % (0-10); EOSINOPHILS % (AUTO) 0 % (0-10); LYMPHOCYTES # (AUTO) 0.5 X 10^3 (1.0-4.0); LYMPHOCYTES % (AUTO) 3 % (12-44); MEAN CORPUSCULAR HEMOGLOBIN 29 PG (25-34); MEAN CORPUSCULAR HGB CONC 34 G/DL (32-36); MEAN CORPUSCULAR VOLUME 86 FL (80-99); MEAN PLATELET VOLUME 9.2 FL (7.4-10.4); MONOCYTES # (AUTO) 0.6 X 10^3 (0.0-1.0); MONOCYTES % (AUTO) 4 % (0-12); NEUTROPHILS # (AUTO) 14.6 X 10^3 (1.8-7.8); NEUTROPHILS % (AUTO) 93 % (42-75); PLATELET COUNT 363 10^3/uL (130-400); RED BLOOD COUNT 3.62 10^6/uL (4.35-5.85); WHITE BLOOD COUNT 15.8 10^3/uL (4.3-11.0)
[2016-11-14 17:06] LABS: BAND NEUTROPHILS 10 %; BASOPHILS % (MANUAL) 0 %; EOSINOPHILS % (MANUAL) 0 %; LYMPHOCYTES % (MANUAL) 6 %; METAMYELOCYTES % 1 %; NEUTROPHILS % (MANUAL) 79 %
[2016-11-14 17:12] LABS: ALBUMIN 2.9 G/DL (3.2-4.5); BILIRUBIN,TOTAL 0.7 MG/DL (0.1-1.0); CALCIUM 8.8 MG/DL (8.5-10.1); CREATININE SERUM 1.19 MG/DL (0.60-1.30); INR 2.7 (0.8-1.4); POTASSIUM 5.4 MMOL/L (3.6-5.0); PROTHROMBIN TIME PATIENT 28.2 SEC (12.2-14.7); TOTAL PROTEIN 6.1 G/DL (6.4-8.2)
[2016-11-14] MEDS ORDERED: inSUlin (REGULAR) HUMAN 1 UNIT/0.01 ML (CHARGE PER UNIT) IV ONE (17:15)
[2016-11-14 17:36] LABS: BILIRUBIN,URINE NEGATIVE (NEGATIVE); KETONES,URINE NEGATIVE (NEGATIVE); LEUKOCYTE ESTERASE ,URINE NEGATIVE (NEGATIVE); NITRITE,URINE NEGATIVE (NEGATIVE); PH,URINE 7 (5-9); PROTEIN,URINE NEGATIVE (NEGATIVE); UROBILINOGEN,URINE NORMAL (NORMAL)
[2016-11-14] MEDS ORDERED: DIATRIZOATE MEGLUM/SODIUM 37% 120 ML (GASTROGRAFIN) PO ONE (18:00)
[2016-11-14] MEDS ORDERED: IOHEXOL 350 MG/ML 100 ML (OMNIPAQUE 350) VIAL IV ONE (18:00)
[2016-11-14] MEDS ORDERED: CATHETER FLUSH 10 ML SYR IV PRN (18:00)
[2016-11-14] MEDS ORDERED: NS 100 ML (IVPB) BAG IV ONE (18:00)
--- NOTE | 2016-11-14 18:13 | Diagnostic Imaging Report ---
INDICATION: Chest pain. EXAMINATION: PA and lateral views of the chest were obtained at 5:59 p.m. COMPARISON: 11/07/16. FINDINGS: There is cardiomegaly and poststernotomy change with unchanged pacemaker device. There is unchanged mass effect in the right apex, medially. The remainder of the right lung is clear. The left lung is clear. IMPRESSION: No change in mass effect in right apical region. Poststernotomy changes with pacemaker are unchanged. No new infiltrate, pneumothorax or pleural fluid. Dictated by: Dictated on workstation # [id number]
--- NOTE | 2016-11-14 18:43 | Diagnostic Imaging Report ---
INDICATION: Abdominal pain, history of lung cancer and constipation CT of the abdomen and pelvis obtained with IV contrast bolus. Comparison made to 04/22/16. Visualized portions of the lung bases show some minimal infiltrate or atelectasis in the left base. There is no free air or pleural fluid. There are degenerative changes in both hips as well as in the SI joints. There is diffuse degenerative change of the lumbar spine without lytic lesion. The liver and gallbladder are unremarkable. The spleen, adrenals, and pancreas are unchanged compared to the prior study. There is a stable 2 cm nodule in the right adrenal gland which is unchanged, and is likely an adenoma since it was not positive on previous PET study. There is a stable small cyst in the right kidney superiorly and a stable moderate cyst in the right kidney inferiorly. There is no retroperitoneal mass or adenopathy. There is no ascites or abnormal fluid collection. There is a large amount of stool throughout the colon. There is no overt bowel obstruction. IMPRESSION: Large amount of stool throughout the colon compatible with history of constipation. No overt bowel obstruction. Stable cysts in the right kidney. Stable right adrenal nodule. Dictated by: Dictated on workstation # [id number]
[2016-11-14] MEDS ORDERED: POLY17PO6 PO (19:48)
[2016-11-14 20:26] VITALS: BP 124/76
== END 2016-11-14 20:26 | disposition home or self-care (01) ==
LOC: EDUNIT# 16:15 → ER 16:17
DX: K56.41 Fecal impaction (principal); E11.9 Type 2 diabetes mellitus without complications; J44.9 Chronic obstructive pulmonary disease, unspecified; Z79.82 Long term (current) use of aspirin; Z79.899 Other long term (current) drug therapy; Z79.4 Long term (current) use of insulin; Z95.0 Presence of cardiac pacemaker; Z85.118 Personal history of other malignant neoplasm of bronchus and lung
CPT/HCPCS: 36415; 71020; 74177; 80053; 81000; 82962; 83690; 85007; 85027; 85610; 87070; 87205; 96374; 96375

== ENCOUNTER 2016-11-17 09:53 | Outpatient (RCR) | payer MEDICARE, MEDICAID ==
[~2016-11-17 09:53] MED LIST changes: +POLY17PO6 PO
--- OUTSIDE RECORDS SUMMARY | 2016-11-17 09:57 | XMS REPORT | Continuity of Care Document ---
Author Author [facility] Organization [facility] Address Unknown Phone Unavailable Care Team Providers Care Control Systems Engineer Name Role Phone Zoraida Lyle PCP [phone] Source Comments Some departments are not documenting in the electronic medical record. If you do not see the information that you expected, contact Release of Information in the Health Information Management department at [phone] for further assistance in locating additional records.[facility] Active Allergies and Adverse Reactions Not [...]
== END 2017-02-15 | disposition home or self-care (01) ==
LOC: ONC 09:53
PROVIDERS: ATTEND Internal Medicine Hematology & Oncology
DX: C34.11 Malignant neoplasm of upper lobe, right bronchus or lung (principal); D50.9 Iron deficiency anemia, unspecified; E11.9 Type 2 diabetes mellitus without complications; I11.0 Hypertensive heart disease with heart failure; I50.9 Heart failure, unspecified; I25.10 Atherosclerotic heart disease of native coronary artery without angina pectoris; J44.9 Chronic obstructive pulmonary disease, unspecified; Z86.73 Personal history of transient ischemic attack (TIA), and cerebral infarction without residual deficits; Z95.810 Presence of automatic (implantable) cardiac defibrillator; Z95.2 Presence of prosthetic heart valve; Z87.891 Personal history of nicotine dependence; Z79.899 Other long term (current) drug therapy; Z79.01 Long term (current) use of anticoagulants; Z45.2 Encounter for adjustment and management of vascular access device
CPT/HCPCS: 96523; 99213